=== PATIENT | male | born 1980 | race Caucasian/White ===

== ENCOUNTER 2022-10-03 07:40 | Day surgery (SDC) | payer BC ==
[~2022-10-03 07:40] MED LIST: FAMOTIDINE 20 MG/2 ML VIAL IV PRN
[2022-10-03] MEDS ORDERED: ONDANSETRON 4 MG/2 ML VIAL ONE (08:13)
[2022-10-03] MEDS ORDERED: LACTATED RINGERS 1,000 ML IV ONE (08:21)
[2022-10-03] MEDS ORDERED: DEXAMETHASONE SOD PHOSPHATE 4 MG/ML 1 ML VIAL IVP ONE (08:22)
[2022-10-03] MEDS ORDERED: ONDANSETRON 4 MG/2 ML VIAL IVP ONE ×2 (08:22)
[2022-10-03] MEDS ORDERED: MIDAZOLAM 2 MG/2 ML VIAL IVP ONE (08:26)
[2022-10-03] MEDS ORDERED: PROPOFOL 10 MG/ML 20 ML VIAL IV ONE (08:28)
[2022-10-03] MEDS ORDERED: SUCCINYLCHOLINE CHLORIDE 200 MG/10 ML VIAL IV ONE (08:28)
[2022-10-03] MEDS ORDERED: LIDOCAINE 2% INJ 20 MG/ML (2 ML VIAL) ONE (08:28)
[2022-10-03] MEDS ORDERED: fentaNYL (PF) 50 MCG/ML 2 ML AMP ONE (08:28)
[2022-10-03] MEDS ORDERED: MIDAZOLAM 2 MG/2 ML VIAL ONE (08:28)
[2022-10-03] MEDS ORDERED: LIDOCAINE 1%-EPI 1:100,000 50 ML VIAL SQ ONE (09:00)
[2022-10-03] MEDS ORDERED: BUPIVACAINE (PF) 0.5% 30 ML VIAL SQ ONE (09:00)
[2022-10-03 09:20] VITALS: TEMP 97.8
--- NOTE | 2022-10-03 09:26 | P.OP ---
Date of Procedure: 10/03/22 Preoperative Diagnosis: 2 left. Tonsillar masses, the left epiglottic mass Postoperative Diagnosis: Same Procedure(s) Performed: Surgical excision of 2 left peritonsillar lesions any direct microscopic laryngoscopy with removal of a left epiglottic lesion Anesthesia: GETA Surgeon: Jori Munoz Estimated Blood Loss (ml): 5 Pathology: other (2 left peritonsillar lesions and left epiglottic lesion) Condition: stable Disposition: PACU Indications for Procedure: This patient has 2 left peritonsillar lesions and a left epiglottic lesion that is suspicious. Suspect HPV rule out malignancy Operative Findings: Patient had 2 lesions the left peritonsillar and left epiglottis Description of Procedure: Patient was taken to the operative room placed in the supine position. A general inhalation anesthetic was administered to the patient by mask and subsequently intubated with a cuffed endotracheal tube by the department of anesthesia with a functioning IV line in place. Patient was monitored throughout the entire case by the department of anesthesia. The mouth was opened with the McIvor mouth gag and with use of a DeBakeys and scissors to lesions were removed from the left peritonsillar region. Hemostasis was obtained with silver nitrate cauterization. There is were anesthetized. A tooth guard was then placed after the McIvor mouthgag was removed and a Jako laryngoscope was placed into the patient's mouth with care to avoid any trauma to the lips teeth gums and tongue ulcers open tongue was depressed with the blade and the entire oropharynx hypopharynx laryngeal region epiglottis vallecula true and false vocal cords piriform sinuses and postcricoid space etc. were examined there is a lesion on the left epiglottis that was removed the rest of the examination was unremarkable. We did utilized a Zeiss microscope for this and place this on suspension for the biopsy. The patient tolerated this well and follow-up will be in the office in 1 week. He has no voice restrictions.
[2022-10-03] MEDS ORDERED: Acetaminophen-Codeine 300-30mg TAB ONE (10:06)
[2022-10-03] MEDS ORDERED: Acetaminophen-Codeine 300-30mg TAB PO ONE (10:06)
[2022-10-03 10:09] VITALS: RESP 16
[2022-10-03 10:30] VITALS: BP 119/70; PULSE 73
== END 2022-10-03 10:36 | disposition home or self-care (01) ==
LOC: OR 07:40
PROVIDERS: ATTEND Otolaryngology
DX: D10.2 Benign neoplasm of floor of mouth (principal); J38.7 Other diseases of larynx; I10 Essential (primary) hypertension; F17.210 Nicotine dependence, cigarettes, uncomplicated; D02.0 Carcinoma in situ of larynx; B97.7 Papillomavirus as the cause of diseases classified elsewhere; Z79.899 Other long term (current) drug therapy; Z88.0 Allergy status to penicillin; Z79.811 Long term (current) use of aromatase inhibitors
CPT/HCPCS: 31541; 88305; J2250; J0330; J1100; J2405; J3010; J2704; J2001; J0665